=== PATIENT | male | born 1995 | race Caucasian/White ===

== ENCOUNTER 2024-05-07 10:24 | Emergency (ER) | payer MEDICAID, OTHER ==
[~2024-05-07] VITALS: Ht 175.3 cm; Wt 52.5 kg
[2024-05-07 10:57] LABS: BASOPHILS % (AUTO) 0.3 % (0.0-2.0); EOSINOPHILS % (AUTO) 1.7 % (1.0-6.0); HEMATOCRIT 46.8 % (41-53); HEMOGLOBIN 15.5 g/dL (13.5-17.5); LYMPHOCYTES # (AUTO) 1.8 K/uL (1.0-4.8); LYMPHOCYTES % (AUTO) 23.6 % (22.0-44.0); MEAN CORPUSCULAR HEMOGLOBIN 31.5 pg (26.0-34.0); MEAN CORPUSCULAR VOLUME 95 fL (80-100); MONOCYTES # (AUTO) 0.5 K/uL (0.1-1.0); MONOCYTES % (AUTO) 6.1 % (2.0-9.0); NEUTROPHILS # (AUTO) 5.1 K/uL (1.8-7.7); NEUTROPHILS % (AUTO) 68.3 % (40.0-70.0); PLATELET COUNT (AUTO) 275 K/uL (150-450); RED BLOOD CELL COUNT(AUTO) 4.91 MIL/uL (4.50-5.90); RED CELL DISTRIBUTION WIDTH 13.7 % (11.5-14.5); WHITE BLOOD COUNT (AUTO) 7.5 K/uL (4.5-11.0)
[2024-05-07 11:06] LABS: ANION GAP 8 mmol/L (8-16); CARBON DIOXIDE 28 mmol/L (22-29); CHLORIDE 100 mmol/L (98-107); CREATININE 0.76 mg/dL (0.60-1.30); GLOMERULAR FILTR. RATE CALC > 60 mL/min (>60); GLUCOSE,RANDOM 114 mg/dL (70-110); SODIUM SERUM 136 mmol/L (136-145); UREA NITROGEN, BLOOD 16 mg/dL (7-18)
[2024-05-07 11:13] LABS: ALANINE AMINOTRANSFERASE 22 U/L (12-78); ALBUMIN 3.9 g/dL (3.4-5.0); ALCOHOL, BLOOD (SERUM) < 3 mg/dL (0-10); ALKALINE PHOSPHATASE 112 U/L (46-116); ASPARTATE AMINOTRANSFERASE 24 U/L (15-37); BILIRUBIN,TOTAL 0.3 mg/dL (0.1-1.0); TOTAL PROTEIN, SERUM 7.3 g/dL (6.4-8.2)
[2024-05-07 11:14] LABS: TROPONIN I-HIGH SENSITIVITY 4 ng/L (<76)
[2024-05-07 11:29] VITALS: BP 110/57; PULSE 52; RESP 16; TEMP 97.9; O2SAT 99
== END 2024-05-07 12:59 ==
LOC: EMS 10:24
DX: Z00.8 Encounter for other general examination (principal); Z79.899 Other long term (current) drug therapy
CPT/HCPCS: 99284; 80053; 83735; 84484; 85025; 36415; 93005; G0480

== ENCOUNTER 2024-05-08 03:39 | Inpatient (IN) | payer MEDICAID ==
[~2024-05-08] VITALS: Ht 175.3 cm; Wt 53.6 kg
[2024-05-08 05:00] VITALS: BP 105/75; PULSE 75; RESP 16; TEMP 98.3; O2SAT 100
[2024-05-08] MEDS ORDERED: HALOPERIDOL 5 MG TABLET PO PRN (05:30)
[2024-05-08] MEDS ORDERED: LORazepam 2 MG TABLET PO PRN (05:30)
[2024-05-08 07:25] VITALS: BP 103/55; PULSE 60; RESP 18; TEMP 97.3; O2SAT 97
[2024-05-08 07:33] VITALS: BP 103/55; PULSE 60; RESP 16; TEMP 97.3; O2SAT 97
[2024-05-08] MEDS ORDERED: NICOTINE POLACRILEX 2 MG LOZENGE PO PRN (08:00)
[2024-05-08 08:12] VITALS: BP 112/73; PULSE 81; RESP 17; TEMP 98.1; O2SAT 100
[2024-05-08] MEDS: INFLUENZA VIRUS VACCINE TVS (6MO+) 2024-25/PF 45 MCG/0.5 ML SYRINGE IM. ONE (08:35)
[2024-05-08] MEDS: DOCUSATE SODIUM 100 MG CAPSULE PO SCH (09:19)
[2024-05-08] MEDS ORDERED: PETROLATUM,WHITE 28 GM JELLY TP PRN (11:45)
[2024-05-08] MEDS ORDERED: NICOTINE 14 MG/24 HOUR PATCH TD PRN (11:45)
[2024-05-08] MEDS ORDERED: DOCUSATE SODIUM 100 MG CAPSULE PO PRN (11:45)
[2024-05-08] MEDS ORDERED: IBUPROFEN 400 MG TABLET PO PRN (11:45)
[2024-05-08] MEDS ORDERED: ALBUTEROL SULFATE HFA 90 MCG/PUFF 8 GM INHALER IH PRN (11:45)
[2024-05-08] MEDS ORDERED: ACETAMINOPHEN 325 MG TABLET PO PRN (11:45)
[2024-05-08] MEDS ORDERED: ONDANSETRON 4 MG TABLET PO PRN (11:45)
[2024-05-08] MEDS ORDERED: CloNIDine HCL 0.1 MG TABLET PO PRN (11:45)
[2024-05-08] MEDS ORDERED: MAG HYDROX/ALUMINUM HYD/SIMETH ES 30 ML SUSPENSION UDCUP PO PRN (11:45)
[2024-05-08] MEDS ORDERED: LOPERAMIDE HCL 2 MG CAPSULE PO PRN (11:45)
[2024-05-08] MEDS ORDERED: GuaiFENesin/D-METHORPHAN [SUGAR-FREE] 200-20MG/10 ML SYRUP UDCUP PO PRN (11:45)
[2024-05-08] MEDS ORDERED: MAGNESIUM HYDROXIDE SUSPENSION 30 ML UDCUP PO PRN (11:45)
[2024-05-08] MEDS: DIVALPROEX SODIUM 500 MG DR TABLET PO SCH (16:07)
[2024-05-08] MEDS: OLANZapine 5 MG TABLET PO SCH (16:08)
[2024-05-08 20:00] VITALS: RESP 18
[2024-05-09 08:07] VITALS: BP 110/59; PULSE 76; RESP 18; TEMP 98.2; O2SAT 97
[2024-05-09 09:16] LABS: HEMOGLOBIN A1C 5.6 % (3.8-5.6)
[2024-05-09 09:26] LABS: CHOL/HDL RATIO 2.9 (4.2-7.3); THYROID STIMULATING HORMONE 0.92 uIU/mL (0.36-3.74)
[2024-05-09 20:22] VITALS: BP 105/59; PULSE 63; RESP 16; TEMP 98.5; O2SAT 97
[2024-05-09] MEDS: ZOLPIDEM TARTRATE 10 MG TABLET PO PRN (20:29)
[2024-05-10 08:34] VITALS: BP 126/60; PULSE 67; RESP 18; TEMP 98.4; O2SAT 100
[2024-05-10 09:24] LABS: APPEARANCE,URINE HAZY (CLEAR); BILIRUBIN,URINE NEGATIVE (NEGATIVE); COLOR,URINE YELLOW (YELLOW); GLUCOSE, URINE (UA) NEGATIVE (NEGATIVE); KETONES,URINE NEGATIVE (NEGATIVE); LEUKOCYTE ESTERASE ,URINE NEGATIVE (NEGATIVE); NITRATE,URINE NEGATIVE (NEGATIVE); OCCULT BLOOD,URINE NEGATIVE (NEGATIVE); PH,URINE 7.5 (5.0-8.0); PH,URINE DRUG SCREEN 7.5 (5.0-8.0); PROTEIN,URINE NEGATIVE (NEGATIVE); SPECIFIC GRAVITIY, URINE 1.023 (1.003-1.030); UROBILINOGEN,URINE <=1.0 mg/dL (<=1.0)
[2024-05-10 10:43] LABS: ALCOHOL, URINE DRUG SCREEN NEGATIVE (NEGATIVE); AMPHET/METH SCREEN,URINE NEGATIVE (NEGATIVE); BARBITURATE SCREEN, URINE NEGATIVE (NEGATIVE); BENZODIAZEPINES SCREEN,URINE NEGATIVE (NEGATIVE); CANNABINOID SCREEN,URINE POSITIVE (NEGATIVE); COCAINE SCREEN,URINE NEGATIVE (NEGATIVE); METHADONE SCREEN, URINE NEGATIVE (NEGATIVE); OPIATE SCREEN,URINE NEGATIVE (NEGATIVE); PHENCYCLIDINE SCREEN,URINE NEGATIVE (NEGATIVE)
[2024-05-10 20:00] VITALS: BP 105/60; PULSE 60; RESP 18; TEMP 97.5; O2SAT 98
== END 2024-05-10 20:40 | disposition left against medical advice (07) | DRG 750 ==
LOC: B2S 06:47
PROVIDERS: ADMIT Psychiatry & Neurology Child & Adolescent Psychiatry; ATTEND Psychiatry & Neurology Child & Adolescent Psychiatry
PROC: GZ56ZZZ Individual Psychotherapy, Supportive (ICD-10-PCS; principal; 2024-05-08)
DX: F20.0 Paranoid schizophrenia (principal); F15.90 Other stimulant use, unspecified, uncomplicated; I10 Essential (primary) hypertension; Z53.21 Procedure and treatment not carried out due to patient leaving prior to being seen by health care provider; G47.00 Insomnia, unspecified
CPT/HCPCS: 80061; 80307; 81003; 83036; 84443

== ENCOUNTER 2024-05-12 04:09 | Inpatient (IN) | payer MEDICAID ==
[~2024-05-12] VITALS: Ht 175.3 cm; Wt 54.9 kg
[2024-05-12 04:40] LABS: COVID AG,FIA SOURCE NASAL SWAB
[2024-05-12 04:43] LABS: BASOPHILS % (AUTO) 0.5 % (0.0-2.0); EOSINOPHILS % (AUTO) 0.5 % (1.0-6.0); HEMATOCRIT 39.3 % (41-53); HEMOGLOBIN 13.2 g/dL (13.5-17.5); LYMPHOCYTES # (AUTO) 1.8 K/uL (1.0-4.8); LYMPHOCYTES % (AUTO) 16.9 % (22.0-44.0); MEAN CORPUSCULAR HGB CONC 33.6 G/dL (31.0-37.0); MEAN CORPUSCULAR VOLUME 96 fL (80-100); MONOCYTES % (AUTO) 9.7 % (2.0-9.0); NEUTROPHILS # (AUTO) 7.6 K/uL (1.8-7.7); NEUTROPHILS % (AUTO) 72.4 % (40.0-70.0); PLATELET COUNT (AUTO) 216 K/uL (150-450); RED BLOOD CELL COUNT(AUTO) 4.12 MIL/uL (4.50-5.90); RED CELL DISTRIBUTION WIDTH 13.1 % (11.5-14.5); WHITE BLOOD COUNT (AUTO) 10.5 K/uL (4.5-11.0)
[2024-05-12 04:58] LABS: ALCOHOL, BLOOD (SERUM) < 3 mg/dL (0-10)
[2024-05-12 04:58] LABS: SARS-COV2 (COVID) ANTIGEN,FIA Negative (Negative)
[2024-05-12 05:11] LABS: ANION GAP 7 mmol/L (8-16); CALCIUM, TOTAL 8.8 mg/dL (8.8-10.5); CARBON DIOXIDE 30 mmol/L (22-29); CHLORIDE 100 mmol/L (98-107); CREATININE 0.63 mg/dL (0.60-1.30); GLOMERULAR FILTR. RATE CALC > 60 mL/min (>60); GLUCOSE,RANDOM 121 mg/dL (70-110); POTASSIUM 4.4 mmol/L (3.5-5.1); SODIUM SERUM 136 mmol/L (136-145); UREA NITROGEN, BLOOD 9 mg/dL (7-18)
[2024-05-12 05:44] LABS: APPEARANCE,URINE CLEAR (CLEAR); BILIRUBIN,URINE NEGATIVE (NEGATIVE); COLOR,URINE COLORLESS (YELLOW); GLUCOSE, URINE (UA) NEGATIVE (NEGATIVE); KETONES,URINE NEGATIVE (NEGATIVE); LEUKOCYTE ESTERASE ,URINE NEGATIVE (NEGATIVE); NITRATE,URINE NEGATIVE (NEGATIVE); OCCULT BLOOD,URINE NEGATIVE (NEGATIVE); PH,URINE 7.5 (5.0-8.0); PH,URINE DRUG SCREEN 7.5 (5.0-8.0); PROTEIN,URINE NEGATIVE (NEGATIVE); SPECIFIC GRAVITIY, URINE 1.012 (1.003-1.030); UROBILINOGEN,URINE <=1.0 mg/dL (<=1.0)
[2024-05-12 06:19] LABS: AMPHET/METH SCREEN,URINE POSITIVE (NEGATIVE); BARBITURATE SCREEN, URINE NEGATIVE (NEGATIVE); BENZODIAZEPINES SCREEN,URINE NEGATIVE (NEGATIVE); CANNABINOID SCREEN,URINE POSITIVE (NEGATIVE); COCAINE SCREEN,URINE NEGATIVE (NEGATIVE); METHADONE SCREEN, URINE NEGATIVE (NEGATIVE); OPIATE SCREEN,URINE NEGATIVE (NEGATIVE); PHENCYCLIDINE SCREEN,URINE NEGATIVE (NEGATIVE)
[2024-05-12 06:20] LABS: ALCOHOL, URINE DRUG SCREEN NEGATIVE (NEGATIVE)
[2024-05-12] MEDS: DiphenhydrAMINE HCL 25 MG CAPSULE PO ONE (06:40)
[2024-05-12] MEDS: LORazepam 2 MG TABLET PO ONE (06:40)
[2024-05-12] MEDS: HALOPERIDOL 5 MG TABLET PO ONE (06:41)
[2024-05-12] MEDS ORDERED: IBUPROFEN 400 MG TABLET PO PRN (09:30)
[2024-05-12] MEDS ORDERED: CloNIDine HCL 0.1 MG TABLET PO PRN (09:30)
[2024-05-12] MEDS ORDERED: MAG HYDROX/ALUMINUM HYD/SIMETH ES 30 ML SUSPENSION UDCUP PO PRN (09:30)
[2024-05-12] MEDS ORDERED: MAGNESIUM HYDROXIDE SUSPENSION 30 ML UDCUP PO PRN (09:30)
[2024-05-12] MEDS ORDERED: ACETAMINOPHEN 325 MG TABLET PO PRN (09:30)
[2024-05-12] MEDS ORDERED: ALBUTEROL SULFATE HFA 90 MCG/PUFF 8 GM INHALER IH PRN (09:30)
[2024-05-12] MEDS ORDERED: LOPERAMIDE HCL 2 MG CAPSULE PO PRN (09:30)
[2024-05-12] MEDS ORDERED: ONDANSETRON 4 MG TABLET PO PRN (09:30)
[2024-05-12] MEDS ORDERED: DOCUSATE SODIUM 100 MG CAPSULE PO PRN (09:30)
[2024-05-12] MEDS ORDERED: NICOTINE 14 MG/24 HOUR PATCH TD PRN (09:30)
[2024-05-12] MEDS ORDERED: PETROLATUM,WHITE 28 GM JELLY TP PRN (09:30)
[2024-05-12] MEDS ORDERED: GuaiFENesin/D-METHORPHAN [SUGAR-FREE] 200-20MG/10 ML SYRUP UDCUP PO PRN (09:30)
[2024-05-12 09:48] VITALS: O2SAT 98
[2024-05-12] MEDS ORDERED: OLAN5TAB52 PO (10:51)
[2024-05-12] MEDS ORDERED: DIVA-112 PO (10:51)
[2024-05-12 11:34] VITALS: BP 111/62; PULSE 85; RESP 18; TEMP 97; O2SAT 100
[2024-05-12] MEDS: INFLUENZA VIRUS VACCINE TVS (6MO+) 2024-25/PF 45 MCG/0.5 ML SYRINGE IM. ONE (12:28)
[2024-05-12] MEDS: OLANZapine 5 MG TABLET PO SCH (16:18)
[2024-05-12] MEDS: DIVALPROEX SODIUM 500 MG DR TABLET PO SCH (16:18)
[2024-05-12 20:06] VITALS: PULSE 82; RESP 16; TEMP 96.5
[2024-05-13 08:21] VITALS: BP 102/67; PULSE 65; RESP 17; TEMP 97.3; O2SAT 99
[2024-05-13 08:59] LABS: HEMOGLOBIN A1C 5.6 % (3.8-5.6)
[2024-05-13 09:12] LABS: CHOL/HDL RATIO 2.2 (4.2-7.3); THYROID STIMULATING HORMONE 0.57 uIU/mL (0.36-3.74)
[2024-05-13 20:36] VITALS: BP 100/61; PULSE 83; RESP 16; TEMP 97.7; O2SAT 100
[2024-05-14 08:04] VITALS: BP 106/60; PULSE 80; RESP 18; TEMP 97.7; O2SAT 98
[2024-05-14 08:58] LABS: APPEARANCE,URINE CLEAR (CLEAR); BILIRUBIN,URINE NEGATIVE (NEGATIVE); COLOR,URINE LIGHT YELLOW (YELLOW); GLUCOSE, URINE (UA) NEGATIVE (NEGATIVE); KETONES,URINE TRACE mg/dL (NEGATIVE); LEUKOCYTE ESTERASE ,URINE NEGATIVE (NEGATIVE); NITRATE,URINE NEGATIVE (NEGATIVE); OCCULT BLOOD,URINE NEGATIVE (NEGATIVE); PH,URINE 6.5 (5.0-8.0); PH,URINE DRUG SCREEN 6.5 (5.0-8.0); PROTEIN,URINE NEGATIVE (NEGATIVE); SPECIFIC GRAVITIY, URINE 1.018 (1.003-1.030); UROBILINOGEN,URINE <=1.0 mg/dL (<=1.0)
[2024-05-14 09:03] LABS: ALCOHOL, URINE DRUG SCREEN NEGATIVE (NEGATIVE); AMPHET/METH SCREEN,URINE NEGATIVE (NEGATIVE); BARBITURATE SCREEN, URINE NEGATIVE (NEGATIVE); BENZODIAZEPINES SCREEN,URINE NEGATIVE (NEGATIVE); CANNABINOID SCREEN,URINE POSITIVE (NEGATIVE); COCAINE SCREEN,URINE NEGATIVE (NEGATIVE); METHADONE SCREEN, URINE NEGATIVE (NEGATIVE); OPIATE SCREEN,URINE NEGATIVE (NEGATIVE); PHENCYCLIDINE SCREEN,URINE NEGATIVE (NEGATIVE)
[2024-05-14] MEDS: HALOPERIDOL 5 MG TABLET PO PRN (13:59)
[2024-05-14] MEDS: LORazepam 2 MG TABLET PO PRN (13:59)
[2024-05-14 20:07] VITALS: BP 108/63; PULSE 65; RESP 18; TEMP 97.3; O2SAT 98
[2024-05-14] MEDS: ZOLPIDEM TARTRATE 10 MG TABLET PO PRN (20:40)
[2024-05-15 08:03] VITALS: BP 105/60; PULSE 73; RESP 19; TEMP 98; O2SAT 98
[2024-05-15 20:56] VITALS: BP 111/72; PULSE 82; RESP 7; TEMP 97.9
[2024-05-16 08:42] VITALS: BP 120/76; PULSE 103; RESP 17; TEMP 98.4; O2SAT 98
[2024-05-17 08:56] VITALS: BP 115/60; PULSE 65; RESP 17; TEMP 97.9; O2SAT 99
[2024-05-17] MEDS ORDERED: OLAN5TAB77 PO (10:35)
== END 2024-05-17 16:24 | disposition left against medical advice (07) | DRG 750 ==
LOC: EMS 04:10 → B2S 05:39 → B3A 05-15 17:23
PROVIDERS: ADMIT Psychiatry & Neurology Child & Adolescent Psychiatry; ATTEND Psychiatry & Neurology Child & Adolescent Psychiatry
PROC: GZHZZZZ Group Psychotherapy (ICD-10-PCS; principal; 2024-05-12)
PROC: GZ58ZZZ Individual Psychotherapy, Cognitive-Behavioral (ICD-10-PCS; 2024-05-12)
PROC: GZ51ZZZ Individual Psychotherapy, Behavioral (ICD-10-PCS; 2024-05-12)
DX: F20.0 Paranoid schizophrenia (principal); E44.0 Moderate protein-calorie malnutrition; D64.9 Anemia, unspecified; Z20.822 Contact with and (suspected) exposure to COVID-19; Z53.29 Procedure and treatment not carried out because of patient's decision for other reasons; F41.9 Anxiety disorder, unspecified; R45.850 Homicidal ideations; Z79.899 Other long term (current) drug therapy; Z87.891 Personal history of nicotine dependence; Z68.1 Body mass index [BMI] 19.9 or less, adult; F12.90 Cannabis use, unspecified, uncomplicated; F15.90 Other stimulant use, unspecified, uncomplicated
CPT/HCPCS: 80048; 80061; 80307; 81003; 83036; 84443; 85025; 87081; 99285; G0480